=== PATIENT | female | born 1975 ===

== ENCOUNTER 2023-05-25 15:01 | Outpatient (RCR) | payer OTHER, SELFPAY | END 2023-07-12 16:34 | disposition home or self-care (01) | LOC: PT 15:01 | PROVIDERS: PCP Internal Medicine; Visit Provider Internal Medicine | DX: M54.16 Radiculopathy, lumbar region (principal) | CPT/HCPCS: 20560; 20561; 97014; 97035; 97110; 97140; 97161 ==

== ENCOUNTER 2023-08-08 08:36 | Outpatient (RCR) | payer OTHER, SELFPAY | END 2023-10-01 09:00 | disposition home or self-care (01) | LOC: PT 08:36 | PROVIDERS: PCP Internal Medicine; Visit Provider Internal Medicine | DX: M54.16 Radiculopathy, lumbar region (principal) | CPT/HCPCS: 20561; 97010; 97014; 97035; 97140; 97161 ==

== ENCOUNTER 2023-10-02 09:37 | Outpatient (RCR) | payer OTHER, SELFPAY | END 2023-11-22 11:14 | disposition home or self-care (01) | LOC: PT 09:37 | PROVIDERS: PCP Internal Medicine; Visit Provider Podiatrist Foot & Ankle Surgery | DX: M54.16 Radiculopathy, lumbar region (principal); M25.511 Pain in right shoulder | CPT/HCPCS: 97035; 97110; 97140 ==

== ENCOUNTER 2024-07-11 08:00 | Outpatient (RCR) | payer OTHER, SELFPAY | END 2024-10-01 15:08 | disposition home or self-care (01) | LOC: PT 08:00 | PROVIDERS: PCP Internal Medicine; Visit Provider Internal Medicine | DX: M54.16 Radiculopathy, lumbar region (principal); M25.551 Pain in right hip | CPT/HCPCS: 20561; 97161 ==

== ENCOUNTER 2024-10-02 09:57 | Outpatient (RCR) | payer SELFPAY | END 2024-10-16 10:12 | disposition home or self-care (01) | LOC: PT 09:57 | PROVIDERS: PCP Internal Medicine; Visit Provider Internal Medicine | DX: M25.551 Pain in right hip (principal); M54.6 Pain in thoracic spine | CPT/HCPCS: 20561 ==

== ENCOUNTER 2024-12-31 09:03 | Outpatient (RCR) | payer SELFPAY | END 2025-01-15 07:10 | disposition home or self-care (01) | LOC: PT 09:03 | PROVIDERS: PCP Internal Medicine; Visit Provider Internal Medicine | DX: M62.838 Other muscle spasm (principal); M54.16 Radiculopathy, lumbar region | CPT/HCPCS: 20561; 97161 ==